=== PATIENT | female | born 1985 | race Caucasian/White ===

== ENCOUNTER 2025-03-19 16:48 | Inpatient (IN) | payer SELFPAY ==
[2025-03-19] VITALS (38 sets, daily range): BP systolic 95–150; BP diastolic 46–116; PULSE 71–147; RESP 18; TEMP 37–37.5; O2SAT 96–100; BMI 33.7
--- NOTE | 2025-03-19 18:15 | PM.IMHP ---
H&P: HPI History of Present Illness Date/Time: 03/19/25 18:15 Chief Complaint: decelerations Narrative: Patient is a 39 year old who presents for contractions. She has not had care in this . She denies complications with her other pregnancies. She denies tobacco, drug or alcohol use. Her contractions started earlier tonight. She denies leakage of fluid or vaginal bleeding. Review of Systems Review of Systems: All systems reviewed & are unremarkable except as noted in HPI and below Meds Vital Signs Vital Signs - 24 hr 03/19/25 17:16 03/19/25 17:30 03/19/25 17:45 Pulse Rate 84 91 83 Blood Pressure 111/61 104/69 117/72 Exam Const: General: in distress (with contractions) moderate Eyes: General: appearance normal, both eyes and all related structures Resp: Effort & Inspection: normal respiratory effort Cardio: Rate: regular rate Assessment and Plan Assessment and plan (1) Active labor: Code(s): O60.00 - labor without delivery, unspecified trimester Status: Acute Assessment and Plan: - estimated 36w1d by LMP, no confirmatory ultrasound dating - no care - recurrent late and variable decelerations on monitoring - plan for AROM after epidural, augmentation for nonreassuring status
[2025-03-19] MEDS: OXYTOCIN 10 UNITS/ML VIAL IM (18:45)
--- NOTE | 2025-03-19 18:54 | PM.OBPRVD ---
OB - Vaginal Delivery Note Procedure Delivery date: 03/19/25 Route of delivery: Episiotomy description: None Delivery repair: vicryl Specimen: No Anesthesia type: Epidural Disposition: Floor Complications: No immediate complications Narrative: See H&P and notes for details on patient's admission and labor. While attempting to obtain IV access, patient SROM'd clear fluid. She progressed to complete cervical dilation and at the appropriate time began pushing. With adequate expulsive efforts by the mother, the baby's head was delivered without difficulty. Nuchal cord was not present. The baby's right shoulder was anterior and delivered under the pubic symphysis without difficulty. The posterior shoulder and the rest of the baby delivered without difficulty. The umbilical cord was doubly clamped and cut after 20 seconds of delayed cord clamping. Care of the infant was then assumed by the nursing staff. Baby Date of : 03/19/25 Time of : 18:36 Gestational Age by Date: 36 (by LMP, no US dating available) gender: Male presentation: vertex position: Left Occiput Anterior Placenta delivery description: Expressed Cord Vessel Description: 3 Vessels and Around Body
[2025-03-19 19:08] LABS: Hematocrit 32.7 % (37.0-47.0); Hemoglobin 11.5 g/dL (12.0-15.0); Immature Granulocyte Percent A 0.6 % (0-0.5); Immature Platelet Fraction Pct 9.6 % (0.9-11.2); Lymphocytes Absolute Auto 1.59 K/mm3 (0.9-3.2); Mean Corpuscular HGB Conc 35.2 g/dl (32-36); Mean Corpuscular Hemoglobin 34.6 pg (26-34); Mean Corpuscular Volume 98.5 fl (80-100); Nucleated Red Blood Cells Absolute Auto 0.000 K/mm3 (0.0-0.012); Nucleated Red Blood Cells Perc 0.0 % (0.0-0.2); Platelet Count Result 141 k/mm3 (150-375); Red Blood Count 3.32 M/mm3 (4.2-5.4); White Blood Count 16.5 K/mm3 (4.5-10.0)
[2025-03-19 19:10] LABS: Cannabinoid Screen Urine Negative (Negative)
[2025-03-19 19:25] LABS: Syphilis IgG/IgM Antibody Non-Reactive (Nonreactive)
[2025-03-19 19:31] LABS: Hepatitis B Surface Antigen Negative (Negative)
--- NOTE | 2025-03-19 19:33 | LDADM ---
This patient, Marga Fulton, was admitted to Labor/Delivery/Recovery 102 on 03/19/25 at 16:48. Plans for labor, pain management and were discussed with patient. Patient/family oriented to hospital policies and general routines including ID bracelet, bed and alarms, visiting hours, pain management, procedures, bathroom and other care routines, personal items, smoking policy, room service/diet and guest tray routines, infant security routines, and visiting hours. Patient/Family are encouraged to report perceived risks to care and to ask questions if they do not understand what they are told or what they should do. See OBIX for further documentation.
[2025-03-19 19:37] LABS: HIV 1/2 Ab P24 Ag Result Negative (Negative)
--- NOTE | 2025-03-19 20:50 | P.PCNOB_ITS ---
OB - Vaginal Delivery Note Procedure Delivery date: 03/19/25 Events: No Care, Premature Rupture of Membranes and Other ( decelerations) Intrapartal Events: Decelerations Delivery monitor: External FHT and External Uterine Route of delivery: Episiotomy description: None Laceration Description: None Specimen: Yes Quantitative Blood Loss (ml): 100 Anesthesia type: None Disposition: Floor Complications: No immediate complications Narrative: See H&P and notes for details on patient's admission and labor. She progressed to complete cervical dilation and at the appropriate time began pushing. With adequate expulsive efforts by the mother, the baby's head was delivered without difficulty. Nuchal cord not present.The baby's right shoulder was anterior and delivered under the pubic symphysis without difficulty. The posterior shoulder and the rest of the baby delivered without difficulty. The umbilical cord was doubly clamped and cut after 20 seconds of delayed cord clamping. Care of the infant was then assumed by the nursing staff. [facility] Baby Date of : 03/19/25 Time of : 18:36 Gestational Age by Date: 36 (by LMP, no US dating available) Infant gender: Male presentation: vertex position: Left Occiput Anterior Placenta delivery description: Expressed Cord Vessel Description: 3 Vessels and Around Body
[2025-03-19] MEDS: IBUPROFEN 600 MG TABLET PO (20:51)
--- NOTE | 2025-03-19 20:53 | PM.OBPNLAB ---
Pain Control Date/time seen: 03/19/25 1830 Pelvic Exam Dilation (cm): 8 Effacement (%): 90 station: 0 Amniotic membrane status: Ruptured (clear fluid) Status status: Category ll Assessment and Plan Assessment: active labor Plan: continuous present management Comments: While attempting to get IV, patient continued to have recurrent decelerations and SROM occurred with clear fluid. Progressing quickly, anticipate .
--- NOTE | 2025-03-19 21:22 | OBPPTRN ---
Patient transferred to post room #292 via wheelchair. Support person not currently present. Oriented to unit, room, information board, rooming in, admission packet and security measures. Patient verbalizes understanding.
[2025-03-19] MEDS: ACETAMINOPHEN 325 MG TABLET 650 MG PO (21:55)
[2025-03-20 00:14] VITALS: BP 115/64; PULSE 72; RESP 18; TEMP 36.6; O2SAT 100
[2025-03-20] MEDS: IBUPROFEN 600 MG TABLET PO (02:40)
[2025-03-20 05:30] VITALS: BP 119/72; PULSE 68; RESP 18; TEMP 36.7; O2SAT 100
[2025-03-20] MEDS: ACETAMINOPHEN 325 MG TABLET 650 MG PO (05:30)
[2025-03-20 07:50] VITALS: BP 127/66; PULSE 69; RESP 20; TEMP 37.2; O2SAT 100
--- NOTE | 2025-03-20 08:15 | P.PNOB_ITS ---
OB - PN: Subj Subjective Date/time seen: 03/20/25 08:15 Interval history: pp day 1 doing well rn rec care coordination consult pt baby transferred lab to draw labs OB - PN: Obj Data Labs 03/19/25 19:02 Labs: Laboratory Results - last 24 hr 03/19/25 03/19/25 03/19/25 17:50 18:12 19:02 WBC 16.5 H RBC 3.32 L Hgb 11.5 L Hct 32.7 L MCV 98.5 MCH 34.6 H MCHC 35.2 RDW 13.1 Plt Count 141 L MPV 11.8 H Immature Gran % (Auto) 0.6 H Neut % (Auto) 83.2 H Lymph % (Auto) 9.6 L [place] % (Auto) 6.4 Eos % (Auto) 0.1 Baso % (Auto) 0.1 L Lymph # (Auto) 1.59 [place] # (Auto) 1.1 H Eos # (Auto) 0.0 Baso # (Auto) 0.0 Abs Immat Gran (auto) 0.10 H Absolute Neuts (auto) 13.8 H Absolute Nucleated RBC 0.000 Nucleated RBC % 0.0 % Immature Plt Fraction 9.6 Urine Opiates Screen Negative Urine Methadone Screen Negative Ur Barbiturates Screen Negative Ur Phencyclidine Scrn Negative Ur Amphetamine Screen Negative U Benzodiazepines Scrn Negative Urine Cocaine Screen Positive A U Cannabinoids Screen Negative Syphilis IgG/IgM Ab Non-reactive Hep Bs Antigen Negative HIV 1&2 Ab/P24 Ag 4thGn Negative Rubella IgG Antibody 8.6 L Blood Type A Positive Antibody Screen Negative OB - PN A/P Plan day: 1 Plan: routine care Comments: plan care coordination Time Spent With Patient Time: Total time spent is greater than 50% in coordination of care (as documented) at patient's floor/unit and/or counseling patient: Review of Systems 2 Review of Systems: All systems reviewed & are unremarkable except as noted in HPI and below Exam 2 Const: General: cooperative and healthy appearing Chest: Chest palpation & inspection: normal inspection of the chest Resp: Effort & Inspection: normal respiratory effort Cardio: Rate: regular rate Skin: General skin exam: normal color
[2025-03-20 10:51] LABS: Hematocrit 32.1 % (37.0-47.0); Hemoglobin 10.8 g/dL (12.0-15.0)
--- NOTE | 2025-03-20 11:30 | PC.NURSE ---
Updated Dr Jacobo over the phone on patient condition, bleeding and fundal assessment, lab results, and minimal complaint of pain. Also notified that care coordination has been in to speak with the patient and collected all pertinent information. Patient would like to be discharged to see infant at [facility]. RN received orders to discharge patient at this time.
[2025-03-20 12:25] VITALS: BP 110/67; PULSE 70; RESP 16; TEMP 36.8; O2SAT 99
--- NOTE | 2025-03-21 09:20 | PCCCNOTE ---
fruit and vegetable factory worker met with patient at bedside to discuss discharge planning and other relevant information concerning new born baby kerwin Fulton. Patient reports traveling from [facility] visiting family/friends for the last two weeks. She reports visiting her boyfriend family that live in [facility] but reports she has no contact with her family for personal reasons. She reports coming to [facility] and started experiencing sharp pains in her abdomen area. Patient reports coming to the nearest hospital and giving on 03/19. Patient reports this being her 7th child. She reports having custody of her youngest child (Tre Melendrez) whom is 2 years old. She reports her other children being removed by [facility] in [facility]. Patient reports her baby being transferred to [facility] due to being born early and having respiratory issues. Mother reports not working currently and not receiving any WIC or SNAP benefits as well. Patient reports her boyfriend (father of baby) doing side jobs in [facility] and recently got hired at [employer] in [facility]. fruit and vegetable factory worker asked about employment the father in [place], if they are visiting from [place]. Patient then states moving back to [place] and that she has established a [employer] Mach[employer] Setter for her 2-year-old as well but couldn?t remember the name. The mother reports not having insurance but mentions about having insurance in the past from Medicaid in [place]. She reports having a baby bed and other items in her apartment currently and provided Upper Le[employer] Cutter with an address. It is unknown where exactly the mother is living due to her stating that they were living in hotels as well. The address given is the same address listed in patient chart. fruit and vegetable factory worker mentioned about drug use and patient denied. fruit and vegetable factory worker informed patient of the positive result for cocaine in her system upon delivery and she states, ?I smoked some weed, I don?t use Cocaine unless it was in my weed.? fruit and vegetable factory worker asked about care and patient reports attending 1-2 visits in [facility] and was transferred to [facility] but care was not throughout the . Upper Leather Cutter asked mother of baby, the reasoning for her not having custody of her other children and she reports due to drug use of opioids with her choice of drug being Heroin by injection. 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 Patient became irritable and called her boyfriend, demanding him to tell the Upper Leather Cutter that they have a place to live and other information. fruit and vegetable factory worker did inform the mother that the baby umbilical cord was sent off for testing and that a DCFS report would have to be made due to several factors of a positive screen for Cocaine and history of DCFS due to removal of previous children for drug use. Upper Leather Cutter explained that if other resources needed to be in place that the geriatric case manager/[employer] Cutter could assist with that once making contact. [facility] Reference # listed as [id number]. DCFS building construction supervisor did make contact with myself and the social insurance specialist at [facility] to gather additional information.
--- NOTE | 2025-03-24 12:31 | PM.OBDSVD ---
DS: Admitting Diagnosis Discharge Date 03/20/25 Admitting Diagnosis labor, nonreassuring heart tones DS: Discharge Diagnosis Discharge Diagnosis (1) (spontaneous vaginal delivery): Code(s): O80 - Encounter for full-term uncomplicated delivery Status: Acute OB - DS: Summary OB Procedures : None OB Procedures Intrapartum: Spontaneous Vag Delivery OB Procedures: : None Peripartum Data Laceration Description: None Episiotomy description: None Time Spent with Patient Time attestation: Total time spent providing and/or coordinating discharge services: Discharge Plan Discharge Attending physician on discharge: Jose Jacobo Consulting providers: Rosendo Best; Jocelynn Thornton Discharging Clinician: Jose Jacobo Anticipated Discharge Date/Time: 03/20/25 11:59 Patient Disposition: Home Activity: may shower, as tolerated and pelvic rest Diet: as tolerated Discharge Instructions: Education: Mom and Baby Guide Given to: Mother Follow-Up: Call your delivering provider's office for an appointment to be seen Mom should come to the [facility] for the follow-up appointment. Appointment Date/Time: March 21, 2025 at 9:00 am What to expect at your follow-up visit: Blood Pressure Check Physical Assessment Call [phone] if you are unable to keep your appointment time. BREAST CARE: * Wear a snug supportive bra. Bottle Feeding: * May apply ice packs PERINEAL CARE: * Until bleeding stops, use your lavonne bottle after urinating * Change your pad frequently throughout the day * You may take sitz baths several times a day (fill your bathtub with warm water and soak for 20 minutes.) Do NOT bathe in the water * No tub baths until seen by your physician - You may shower ACTIVITY: * Rest as much as possible. * Do not exercise or lift anything heavier than your baby (such as laundry or other children.) * Avoid stairs or driving as much as possible. * Do not put anything into the vagina. No douching, tampons, or sexual activity until seen by physician. NOTIFY PHYSICIAN IF YOU HAVE ANY QUESTIONS OR IF ANY OF THE FOLLOWING SYMPTOMS OCCUR: * If your episiotomy or incision becomes red, swollen, or more painful than what you have experienced in the hospital. * If your vaginal bleeding becomes foul smelling. * If your vaginal bleeding becomes more heavy than a period or if your bleeding changes from pink to bright red. However, you may pass an occasional walnut-sized clot once or twice for the first week . * If you experience a sharp, shooting pain in you calves. * If you discover a hard, reddened area on your breast or if you experience flu-like symptoms. DIET: * Eat regular, well-balanced meals. * Drink plenty of fluids daily. If , drink to thirst. Patient Language: Swiss Stand Alone Forms: General Discharge Information Follow-up/Referrals: Jose Jacobo MD [Physician, RETAIL SEASONAL SPECIALIST] Date of admission: 03/19/25 16:48 Primary Care Provider: PHYSICIAN,AGRICULTURAL ENGINEERING TECHNICIANS Admitting Provider: Jose Jacobo Attending physician on admission: oJse Jacobo Condition: Stable
== END 2025-03-20 13:45 | disposition home or self-care (01) | DRG 560 ==
LOC: ANHLDR 20:32 → ANHOB2 21:28
PROVIDERS: Admitting Provider Obstetrics & Gynecology; Visit Provider Obstetrics & Gynecology
DX: O42.013 Preterm premature rupture of membranes, onset of labor within 24 hours of rupture, third trimester (principal); O60.14X0 Preterm labor third trimester with preterm delivery third trimester, not applicable or unspecified; O36.8330 Maternal care for abnormalities of the fetal heart rate or rhythm, third trimester, not applicable or unspecified; O77.0 Labor and delivery complicated by meconium in amniotic fluid; Z37.0 Single live birth; Z3A.36 36 weeks gestation of pregnancy; O62.3 Precipitate labor
CPT/HCPCS: 36415; 80307; 85014; 85018; 85025; 85055; 86593; 86703; 86762; 86850; 86900; 86901; 87340; 88307; A9270; G0432; J2590

== ENCOUNTER 2025-04-04 21:20 | Emergency (ER) | payer SELFPAY ==
[2025-04-04 21:33] VITALS: BP 115/72; PULSE 130; RESP 20; TEMP 36.4; O2SAT 100
[2025-04-04 22:15] VITALS: BP 109/74; PULSE 102; RESP 16; O2SAT 98
--- NOTE | 2025-04-04 22:33 | ED_ITS ---
HPI - General Adult General Chief complaint: Vaginal Bleeding Stated complaint: post bleeding Time Seen by Provider: 04/04/25 22:25 Source: patient and family Mode of arrival: ambulatory Limitations: no limitations History of Present Illness HPI narrative: Patient is a 39-year-old female presents to the emergency department complaining of vaginal bleeding. Patient notes she has had 7 pregnancies and 7 children and she is from [place] but was here visiting family in is from [place] when she went into early labor on the 18 of March and delivered a child via vaginal delivery and [facility]. Patient notes that she was overall doing okay with typical slight amount of bleeding from the vagina and seemed to be doing a lot better until yesterday started notes that she was passing some quarter sized clots throughout the day and then today the clot seemed to be getting a lot bigger almost the size of a softball and then over the past 2 hours she started to feel a lot more vaginal bleeding in which she saturated through to more than 3 pads in less than 1 hour. Patient denies any history of heavy menstrual cycles or bleeding disorders. Patient denies use of blood thinners. Patient denies any recent injuries. Patient admits to lightheadedness. Patient denies any chest pain or difficulty breathing. Patient admits to palpitations. Patient denies any pelvic pain or abdominal pain. Related Data Allergies Allergy/AdvReac Type Severity Reaction Status Date / Time No Known Allergies Allergy Verified 03/19/25 19:34 Review of Systems 2 Review of Systems: A 10 system review of systems was completed on the patient and is negative except for what is stated in the HPI. Nursing and ancillary documentation was reviewed. [facility] Social History Social History Smoking status: Never smoker Lack of Transportation: No Lack of Food: Never True Current Housing: I Have Housing Concerned About Future Housing: No Difficulty Paying Gas/Electric Bills: No Difficulty Paying for Meds: No Currently Unemployed: No Education: High School Diploma/GED Difficulty w/ Childcare or Family Care: No Spiritual care concerns: No Exam 2 Narrative: CONST: No acute distress. HENMT: Head is normocephalic and atraumatic. Tacky mucous membranes. No posterior oropharynx erythema. EYES: No scleral icterus. No conjunctival injection. Mild conjunctival pallor. PERRL. NECK: No meningeal signs. RESP: Able to speak in full sentences. Normal respiratory effort. CTAB. CARDIO: Tachycardic rate. Regular rhythm. 2+ DP and radial pulses bilaterally. GI: Nondistended. No tenderness to palpation. Soft. : No CVA tenderness to palpation. Pelvic examination performed with female nurse house painter present at bedside and it was extensive on of dark blood and few clots in the vaginal vault which were removed and the cervix was visualized to have scant oozing darker blood, no significant exsanguination. SKIN: No rashes or lesions noted on exposed skin. NEURO: Oriented x3. Moves all extremities. EXTREM/MSK/BACK: No pedal edema. PSYCH: Normal affect. Course Vital Signs Vital signs: Vital Signs Temperature 97.6 F 04/04/25 21: Pulse Rate 130 H 04/04/25 21: Respiratory Rate 20 04/04/25 21:33 Blood Pressure 115/72 04/04/25 21:33 Pulse Oximetry 100 04/04/25 21:33 Oxygen Delivery Room Air 04/04/25 21:33 Temperature 97.6 F 04/04/25 21: Pulse Rate 130 H 04/04/25 21:33 Respiratory Rate 20 04/04/25 21:33 Blood Pressure 115/72 04/04/25 21:33 Pulse Oximetry 100 04/04/25 21:33 Oxygen Delivery Room Air 04/04/25 21:33 MDM MDM Narrative Medical decision making narrative: Patient presents with the above complaint. Initial vitals are remarkable for tachycardia, patient's initial pulse was long at 130, while I was in the room patient was around 105-110. Physical examination as noted above. Plan discussed: Laboratory analysis, NPO, continues cardiac monitoring, continuous pulse oximetry, type and screen, EKG, IV fluids, pelvic examination, health care aide consultation. On reassessment patient is resting comfortably. No acute distress, denies any current complaints. Patient's heart rate is much improved, ranging from 80s to 90s, blood pressure is getting softer a most recent blood pressure and I recycled it and it is improved again. Patient states she feels well wants to go home at this time and take a shower. Pelvic examination performed with female nurse house painter present at bedside and it was extensive on of dark blood and few clots in the vaginal vault which were removed and the cervix was visualized to have scant oozing darker blood, no significant exsanguination. Patient notes that she has had minimal blood loss since she has been here and is overall much improved, however patient has been lying down throughout being here. Page placed to health care aide, pending call back at this time. Patient is refusing repeat H&H. I spoke with OB on-call Dr. Paul who notes this could be placental site bleeding which multiple happened around 2 weeks when the eschar on the placental site peels off, would recommend talking with patient's Ob. I contacted Dr. Jacobo, we discussed the patient and plan of care, Dr. Jacobo notes that the patient can go home and follow-up as an outpatient, strict return precautions, bleeding precautions. Differential Diagnosis Differential Diagnosis: bleeding, retained products of conception, dehydration, metabolic derangement, electrolyte derangement, dysrhythmia, anemia, bleeding dyscrasia. Medical Records I have reviewed the following patient records and this information was taken into consideration when formulating the assessment and plan.: previous labs and previous hospitalizations (Delivery record reviewed, no care, pre term pre labor rupture of membranes, estimated gestational age was 36 weeks.) Lab Data MDM Lab Attestation statement: I personally reviewed the patient's lab results. Lab results narrative: CBC reveals a white blood cell count 10.2, hemoglobin 11.7. Coags are within normal limits. Comprehensive metabolic panel reveals a BUN of 20, creatinine 1.02, glucose 128. TSH is 2.19. Quantitative hCG is 76.37. Troponin is less than 0.012. Magnesium is 1.9. Lactic acid is 3.5. Most recent hemoglobin on file from March 20, 2025 was 10.8. 04/04/25 22:26 04/04/25 22:27 Labs: Lab Results 04/04/25 04/04/25 04/04/25 Range/Units 22:26 22:27 22:59 WBC 10.2 H (4.5-10.0) K/mm3 RBC 3.46 L (4.2-5.4) M/mm3 Hgb 11.7 L (12.0-15.0) g/dL Hct 34.3 L (37.0-47.0) % MCV 99.1 (80-100) fl MCH 33.8 (26-34) pg MCHC 34.1 (32-36) g/dl RDW 11.6 (11.5-14.5) % Plt Count 287 D (150-375) k/mm3 MPV 10.0 (7.4-10.4) fl Immature Gran % (Auto) 0.2 (0-0.5) % Neut % (Auto) 84.9 H (45.5-73.1) % Lymph % (Auto) 9.8 L (18.3-44.2) % [place] % (Auto) 4.9 (2.6-8.5) % Eos % (Auto) 0.1 (0-4.4) % Baso % (Auto) 0.1 L (0.2-1.2) % Lymph # (Auto) 1.00 (0.9-3.2) K/mm3 [place] # (Auto) 0.5 (0.1-0.6) K/mm3 Eos # (Auto) 0.0 (0-0.3) K/mm3 Baso # (Auto) 0.0 (0.0-0.1) K/mm3 Abs Immat Gran (auto) 0.02 (0.00-0.031) K/mm3 Absolute Neuts (auto) 8.7 H (1.3-6.7) K/mm3 Absolute Nucleated RBC 0.000 (0.0-0.012) K/mm3 Nucleated RBC % 0.0 (0.0-0.2) % PT 13.5 (11.1-14.7) Seconds INR 1.0 APTT 27.9 (22.3-36.8) Seconds Sodium 138 (137-145) mmol/L Potassium 3.6 (3.4-5.0) mmol/L Chloride 106 (98-107) mmol/L Carbon Dioxide 22 (22-30) mmol/L Anion Gap 10 (4-12) mmol/L BUN 20 H (7-17) mg/dL Creatinine 1.02 H (0.7-1.0) mg/dL Estim Creat Clear Calc 71 ml/min Estimated GFR 60 (59 - ) Glucose 128 H (65-110) mg/dL Lactic Acid 3.5 H (0.7-2.0) mmol/L Calcium 9.4 (8.4-10.2) mg/dL Magnesium 1.9 (1.6-2.3) mg/dL Total Bilirubin 0.6 (0.2-1.3) mg/dL AST 28 (14-36) U/L ALT 18 (6-35) U/L Alkaline Phosphatase 94 (38-126) U/L Troponin I < 0.012 (0.000-0.034) ng/mL Total Protein 9.0 H (6.3-8.2) g/dL Albumin 4.6 (3.5-5.1) g/dL TSH (Reflex) 2.190 (0.465-4.68) uIU/mL Beta HCG, Quant 76.37 mIU/ML Blood Type A Positive Antibody Screen Negative Screen Not Reportable Baby's Blood Type Not Reportable Baby's NAVEEN Not Reportable Doses of RhIg Required 0 Discharge Plan Discharge Clinical Impression: bleeding Qualifiers: hemorrhage type: unspecified Qualified Code(s): O72.1 - Other immediate hemorrhage Patient Disposition: Home Condition: Stable Instructions: Antibiotic Form, Bleeding (ED) Additional Instructions: Recent stable hydrated, follow-up with Dr. Jacobo in the next few days for reassessment, return immediately to the emergency department for any new or concerning symptoms especially fever, abdominal pain, pelvic pain, bleeding to the severity of saturating through more than 1 pad per hour for more than 1 hour, signs and symptoms of significant blood loss such as chest pain, difficulty breathing, lightheadedness, palpitations; or any emergent concerns for life, limb, eyesight. Patient Language: Kinyarwanda Follow-up/Referrals: Jose Jacobo MD [Physician, OPERATING ROOM TECHNOLOGIST] - 3 Days PHYSICIAN,[employer]ODU[employer] MIXER [Primary Care Provider, Internal Medicine] Time of Disposition: 00:33
[2025-04-04 22:38] LABS: Hematocrit 34.3 % (37.0-47.0); Hemoglobin 11.7 g/dL (12.0-15.0); Immature Granulocyte Percent A 0.2 % (0-0.5); Lymphocytes Absolute Auto 1.00 K/mm3 (0.9-3.2); Mean Corpuscular HGB Conc 34.1 g/dl (32-36); Mean Corpuscular Hemoglobin 33.8 pg (26-34); Mean Corpuscular Volume 99.1 fl (80-100); Nucleated Red Blood Cells Absolute Auto 0.000 K/mm3 (0.0-0.012); Nucleated Red Blood Cells Perc 0.0 % (0.0-0.2); Platelet Count Result 287 k/mm3 (150-375); Red Blood Count 3.46 M/mm3 (4.2-5.4); White Blood Count 10.2 K/mm3 (4.5-10.0)
[2025-04-04 22:52] LABS: Alanine Aminotransferase 18 U/L (6-35); Albumin Level 4.6 g/dL (3.5-5.1); Alkaline Phosphatase 94 U/L (38-126); Anion Gap 10 mmol/L (4-12); Aspartate Amino Transferase 28 U/L (14-36); Bilirubin,Total 0.6 mg/dL (0.2-1.3); Blood Urea Nitrogen 20 mg/dL (7-17); Calcium 9.4 mg/dL (8.4-10.2); Carbon Dioxide 22 mmol/L (22-30); Chloride 106 mmol/L (98-107); Estimated CRCL calculation 71 ml/min; Estimated Glomerular Filt Rate 60; Glucose 128 mg/dL (65-110); Potassium 3.6 mmol/L (3.4-5.0); Sodium 138 mmol/L (137-145); Total Protein 9.0 g/dL (6.3-8.2)
[2025-04-04 23:01] LABS: Magnesium 1.9 mg/dL (1.6-2.3)
--- NOTE | 2025-04-04 23:02 | PC.NURSE ---
pt is refusing blood cultures and any additional iv sticks. states its her body and her choice.
[2025-04-04 23:12] LABS: Troponin I < 0.012 ng/mL (0.000-0.034)
[2025-04-04 23:17] LABS: Beta HCG Quantitative 76.37 mIU/ML
[2025-04-04 23:23] LABS: INR 1.0; Prothrombin Time 13.5 Seconds (11.1-14.7)
[2025-04-04 23:24] LABS: Partial Thromboplastin Time 27.9 Seconds (22.3-36.8)
[2025-04-04 23:26] LABS: Thyroid Stimulating Hormone Reflex 2.190 uIU/mL (0.465-4.68)
[2025-04-04 23:30] VITALS: BP 110/73; PULSE 94; RESP 21; O2SAT 99
[2025-04-04 23:45] VITALS: BP 111/68; PULSE 88; RESP 23; O2SAT 99
[2025-04-05] VITALS: BP 92/51; PULSE 97; RESP 23; O2SAT 98
--- NOTE | 2025-04-05 00:23 | PC.NURSE ---
pt is refusing the repeat h+h. made aware.
[2025-04-05] MEDS: SODIUM CHLORIDE 0.9% IV 1,000 ML 999 ML IV CONT (00:28)
== END 2025-04-05 00:47 | disposition home or self-care (01) ==
PROVIDERS: Emergency Provider Student in an Organized Health Care Education/Training Program
DX: O72.2 Delayed and secondary postpartum hemorrhage (principal)
CPT/HCPCS: 36415; 80053; 83605; 83735; 84443; 84484; 84702; 85025; 85461; 85610; 85730; 86850; 86900; 86901; 96360; 99284; J7030